=== PATIENT | female | born 1965 | race Two or more races ===

== ENCOUNTER 2016-05-22 21:59 | Emergency (ER) | payer OTHER ==
[2016-05-23] MEDS ORDERED: IBUPROFEN 800 MG TABLET ONE (00:43)
[2016-05-23] MEDS ORDERED: DIAZEPAM 5 MG TABLET ONE (00:43)
--- NOTE | 2016-05-23 07:21 | CT ---
Name: PILAR GAMBOA Exam: CT head without contrast Comparison: 11/12/2014 Clinical history: Dizziness Technique: Helical CT was performed through the head. Angled axial reconstructions were obtained. Sagittal and coronal reconstructions were obtained as well. No contrast was given. An automated dose reduction technique was used to minimize patient radiation dose. Findings: There is no shift of the midline structures. Ventricles are normal size and configuration. There is no mass, mass effect or hemorrhage. Cisterns are uneffaced. Posterior fossa is unremarkable. There is no fracture. Visualized paranasal sinuses and mastoid air cells within normal limits. Impression: Negative unenhanced CT of the head Note: Findings were transmitted to the emergency department from [place] at 0011 hours
== END 2016-05-23 01:05 | disposition home or self-care (01) ==
LOC: ED 21:59
DX: G58.8 Other specified mononeuropathies (principal); M54.2 Cervicalgia; M25.512 Pain in left shoulder; R42 Dizziness and giddiness; E11.9 Type 2 diabetes mellitus without complications; Z79.84 Long term (current) use of oral hypoglycemic drugs
CPT/HCPCS: 70450; 99283 ×2; A9270 ×2